=== PATIENT | female | born 1965 | race Caucasian/White ===

== ENCOUNTER 2024-03-13 23:42 | Emergency (ER) | payer BC, SELFPAY ==
[2024-03-13 23:48] VITALS: BP 110/78
[2024-03-14 00:08] VITALS: BP 115/97
[2024-03-14 00:32] LABS: COVID-19 Antigen Negative (Negative)
--- NOTE | 2024-03-14 00:48 | ED.GENMED ---
History of Present Illness
General
Chief Complaint: Cold/Flu/URI Symptoms
Source: patient
Exam Limitations: none
Time Seen by Provider: 03/14/24 00:23
Travel History
Have you had any contact with someone who has COVID-19?: No
Do you have any symptoms of coronavirus? Fever > 100 degrees, chills, cough, shortness of breath, sore throat, loss of taste or smell, muscle aches, or headache?: No
History of Present Illness
History of Present Illness:
This is a 58 year old female that comes in with c/o congestion. States that in Mid December she has a urinary tract infection. States that she tried over the counter medication and she let it got to long. States that she ended up with a sinus
infection, ear infection and she went to . States that she was given Antibiotics and this did not help and she was place on a second antibiotic and this helped and she started to heal. States that she then got a head old and has congestion, her
ears are clogged and now she has this band that goes around the lower chest to the back. States that this is right below the breast. States that she has had diarrhea. Denies any fever, chills, chest pain, SOB, abd pain, nausea, vomiting, headache,
dizziness, urinary burning or frequency.
Past History
Past History
ED Past Medical History: Asthma, CAD, HTN, Hypercholesterolemia, [place] and Other (Rheumatoid arthritis, psoriatic arthritis, osteoarthritis, Bronchitis, VF arrest, Diverticulitis, UTI, )
ED Past Surgical History: Cardiac (Defibulator), Cholecystectomy, Gynecological (Tubel, ), Orthopedic (Left knee surgery) and Other (Parathyroidectomy)
Social History
Tobacco: Former smoker
Alcohol: Occasional
Drug: None
Personal:
Living: with family
Family History
Family History: CAD; Negative Diabetes, Hypertension, Early CAD, Asthma or Cancer
Review of Systems
Review of Systems
All Other Systems: ROS reviewed and negative except as documented in HPI and ROS
Constitutional: Reports no symptoms; Denies fever or chills
EENT: Reports other (Head congestion)
Respiratory: Reports no symptoms; Denies cough or trouble breathing
Cardiac: Reports other (Band around the lower chest to the back); Denies chest pain
ABD/GI: Reports diarrhea; Denies abdominal pain, nausea or vomiting
: Reports no symptoms; Denies dysuria, frequency or urgency
Musculoskeletal: Reports no symptoms
Skin: Reports no symptoms
Neurological: Reports no symptoms; Denies dizzy or headache
Psychiatric: Reports no symptoms
Phy Exam
General Physical Exam
General Presentation: well appearing and no apparent distress
General age: appears stated age
General Skin: warm and dry
General Habitus: normal
General Mental: alert
General Hydration: appears well hydrated
ENT Exam
ENT Exam: TM's normal, pharynx normal and neck supple
Eye Exam
Eye Exam: EOMI
Cardiovascular Exam
Cardiovascular Exam: regular rate/rhythm, no edema, no murmur and normal peripheral pulses
Pulmonary Exam
Pulmonary Exam: no respiratory distress, no rales, chest non tender, no crackles, no rhonchi, no cough and other (Very faint exp wheezing. left mid to upper lung decreased breath sounds)
Gastrointestinal Exam
Gastrointestinal Exam: normal bowel sounds, non tender, soft, no organomegaly, no pulsatile mass and non distended
Musculoskeletal Exam
Musculoskeletal Exam: full ROM and no edema
Skin Exam
Skin Exam: normal color, warm/dry, no rash and no petechia
Psychiatric Exam
Psychiatric Exam: normal mood/affect
Course
Orders/Labs/Results
Orders:
Orders
03/14/24 00:09
COVID-19 Antigen Urgent
Source: Nasal Swab
Influenza A+B Rapid Molecular Urgent
JAVIER Source: Nasal Swab
Specimen Description:
03/14/24 00:46
Ipratropium/Albuterol Sulfate [Duoneb] 3 ml INH R NOW ONE
CR Chest - 2 Views Urgent
Comment:
Reason For Exam: cOUGH, CONGESTION
03/14/24 00:47
Electrocardiogram (*1) Urgent
Reason for Study: Chest Pain
EKG- Treatment ONCE
03/14/24 01:13
Complete Blood Count/With Diff Urgent
Comprehensive Metabolic Panel Urgent
Troponin I Urgent
Abnormal Lab Results
03/14/24
01:13
RBC 3.69 L 10^6/uL
(4.20-5.40)
Hct 34.5 L %
(37.0-47.0)
MCH 32.5 H pg
(27.0-31.0)
RDW 14.8 H %
(11.5-14.5)
Abs Immat Gran (auto) 0.1 H 10^3/uL
(0-0.05)
Absolute Monos (auto) 0.8 H 10^3/uL
(0.1-0.6)
Immature Gran % 1.0 H %
(0-0.5)
Monocytes % 11.3 H %
(1.7-9.3)
AST 42 H U/L
(14-36)
03/14/24 01:13
03/14/24 01:13
AST elevation. Troponin <0.012, COVID and Influenza negative.
Vital Signs
Initial and Last Documented VS:
Initial Vital Signs
Temp Pulse Resp BP Pulse Ox
97 F 84 22 110/78 94
03/13/24 23:48 03/13/24 23:48 03/13/24 23:48 03/13/24 23:48 03/13/24 23:48
Last Documented Vital Signs
Temp Pulse Resp BP Pulse Ox
97 F 70 19 103/75 100
03/13/24 23:48 03/14/24 01:21 03/14/24 01:21 03/14/24 01:11 03/14/24 01:21
MDM/Problems Addressed
Differential Diagnosis Includes:
PNA, wheezing,
MDM/Problems Addressed:
This is a 58 year old female that comes in with c/o congestion. States that she has a UTI in Mid december. Patient has antibiotic and was getting better and then started with a headache cold. State that now she has this band that is under her breast
that wraps around to the back.
wll get labs. ECG and chest X-ray. Will also give Duo neb.
Back into see patient. Patient states that she feels better after the neb treatment. Explained that this may be a little asthma. will give patient an Albuterol inhaler to use and follow up with the family doctor. Patient to increase her water intake
to 8-8oz glasses daily. Return if any other concerns.
Chronic conditions affecting care: CAD and Asthma
Acute Exacerbation and/or Progression of Chronic Illness: Asthma
*Radiology
Radiology exam reviewed: preliminary read by ED provider (Chest- Negative for any acute disease, Defib noted)
*Pulse Oximetry
Patient hypoxic: no
*EKG
Interpreted by ED Provider?: Yes
Heart Rate: 71
Rate: normal
Rhythm: sinus
Rodney: normal axis
Interval: normal interval
QRS Pattern: normal QRS
Ischemia: no ischemia
*Labor Arbitrator Hearing Office Interpretation
Rate: Labor Arbitrator Hearing Office- N/A
*Critical Care Note
Total Time (30-74mins, 75-104mins- exclusive of procedures): Not Applicable
ED Attending Note
-
Portions of this chart may have been created with voice recognition software.� Occasional wrong word or��sound alike� substitutions may have occurred due to the inherent limitations of voice recognition software.
Discharge Plan
Departure
Patient Disposition: Home (Routine Discharge)
Date of Disposition: 03/14/24
Time of Disposition: 01:59
Patient with high blood pressure during this ER visit?: No
Condition: Good
Covid-19: Negative COVID-19
Discharge Problem:
Asthma
Instructions: Asthma, Adult ED
Prescriptions:
New
albuterol sulfate 90 mcg/actuation HFA aerosol inhaler
2 puff inhalation Q4H PRN (Reason: shortness of breath or wheezing) Qty: 6.7 0RF
No Action
methotrexate sodium 2.5 MG tablet
5 tab PO WEEKLY
Patient Comments:
mondays; unsure dosage
takes on tuesdays 2.5 mg tab each takes 5 tabs
atorvastatin 40 MG tablet
40 mg PO QPM Qty: 30 3RF
lisinopril 2.5 MG tablet
2.5 mg PO DAILY Qty: 30 2RF
aspirin 81 MG tablet,delayed release (DR/EC)
81 mg PO DAILY
Patient Comments:
mariah aspirin
metoprolol tartrate 25 MG tablet
25 mg PO BID
metronidazole 500 MG tablet
500 mg PO TID Qty: 29 0RF
oxycodone-acetaminophen 5 MG/325 MG tablet
1 tab PO Q6HPRN PRN (Reason: pain) Qty: 12 0RF
levofloxacin 500 MG tablet
500 mg PO DAILY Qty: 9 0RF
cephalexin 500 MG capsule
500 mg PO BID Qty: 14 0RF
amoxicillin-pot clavulanate 1 TABLET tablet
1 tab PO BID Qty: 20 0RF
tramadol 50 mg tablet
50 mg PO Q8H PRN (Reason: Pain) Qty: 10 0RF
ibuprofen 600 mg tablet
600 mg PO QID PRN (Reason: fever or pain) Qty: 30 0RF
amoxicillin-pot clavulanate 875-125 mg tablet
1 tab PO BID Qty: 20 0RF
Referrals:
Leslye Gutierrez CRNP [Family Provider] - Call in 1-3 days for appt
Activity Restrictions/Additional Instructions:
As discussed your blood work is normal along with your ECG and Troponin. Your chest x-ray is normal. This is most likely a little asthma exacerbation. You have had a prescription sent to your Pharmacy. If you have any chest tightness, wheezing or
shortness of breath you may use 2 puffs every 4 hours as needed. . Please increase your water intake to 8-8oz glasses daily. Follow up with the family doctor as needed. IF YOU HAVE ANY OTHER CONCERNS PLEASE RETURN TO THE EMERGENCY ROOM.
Interventions
Interventions:
*Risk Screen - Suicide Last Done: 03/13/24 23:48
*General Assessment Last Done: 03/14/24 01:16
*Neglect/Abuse Screening Last Done: 03/13/24 23:48
ED- Fall Risk Assessment Last Done: 03/14/24 01:16
*ED COVID-19 Vaccine History Last Done: 03/14/24 01:16
ED- Pulmonary Assessment Last Done: 03/14/24 01:16
Discharge Date and Time
Print Language: BELIZEAN
[2024-03-14] MEDS: DUONEB 3 ML INH (01:04)
[2024-03-14 01:11] VITALS: BP 103/75
[2024-03-14 01:21] LABS: % Basophils 1.1 % (0-2); % Eosinophils 3.8 % (0-6); % Lymphocytes 26.5 % (20.5-51.1); % Monocytes 11.3 % (1.7-9.3); % Neutrophils 56.3 % (42.2-75.2); Absolute Basophils 0.1 10^3/uL (0-0.2); Absolute Eosinophils 0.3 10^3/uL (0-0.7); Absolute Immature Granulocytes 0.1 10^3/uL (0-0.05); Absolute Monocytes 0.8 10^3/uL (0.1-0.6); Absolute Neutrophils 4.2 10^3/uL (1.4-6.5); Hematocrit 34.5 % (37.0-47.0); Mean Corp Hgb Conc. 34.8 g/dL (33.0-37.0); Mean Corpuscular Hgb 32.5 pg (27.0-31.0); Mean Corpuscular Volume 93.5 fL (81.0-99.0); Nucleated Red Blood Cells % 0 %; Platelet Count 267 10^3/uL (130-400); Red Blood Cell Count 3.69 10^6/uL (4.20-5.40); Red Cell Dist. Width 14.8 % (11.5-14.5); White Blood Cell Count 7.4 10^3/uL (4.8-10.8)
[2024-03-14 01:42] LABS: ALT (SGPT) 33 U/L (0-35); AST (SGOT) 42 U/L (14-36); Albumin 4.1 g/dl (3.5-5.0); Alkaline Phosphatase 79 U/L (38-126); Blood Urea Nitrogen 11 mg/dl (7-17); Calcium 9.5 mg/dl (8.4-10.2); Carbon Dioxide 26 mmol/L (22-30); Chloride 107 mmol/L (98-107); Glucose 93 mg/dl (70-99); Potassium 3.6 mmol/L (3.5-5.1); Sodium 141 mmol/L (135-145); Total Bilirubin 0.5 mg/dl (0.2-1.3); Total Protein 6.5 g/dl (6.3-8.2); eGFR > 60.00
[2024-03-14 01:51] LABS: Troponin I < 0.012 ng/ml
== END 2024-03-14 02:19 | disposition home or self-care (01) ==
LOC: EMR 23:42
PROVIDERS: Clinical Nurse Specialist Family Health; Emergency Medicine; EMERGENCY PHYSICIAN Emergency Medicine; FAMILY PHYSICIAN Nurse Practitioner Adult Health
DX: J45.901 Unspecified asthma with (acute) exacerbation (principal); R19.7 Diarrhea, unspecified; Z11.52 Encounter for screening for COVID-19; I10 Essential (primary) hypertension; E78.00 Pure hypercholesterolemia, unspecified; I25.10 Atherosclerotic heart disease of native coronary artery without angina pectoris; M06.9 Rheumatoid arthritis, unspecified; K57.92 Diverticulitis of intestine, part unspecified, without perforation or abscess without bleeding; M19.90 Unspecified osteoarthritis, unspecified site; I25.2 Old myocardial infarction; Z79.82 Long term (current) use of aspirin; Z95.810 Presence of automatic (implantable) cardiac defibrillator; Z86.74 Personal history of sudden cardiac arrest; Z87.440 Personal history of urinary (tract) infections; Z87.891 Personal history of nicotine dependence; Z90.49 Acquired absence of other specified parts of digestive tract; Z88.1 Allergy status to other antibiotic agents; Z88.5 Allergy status to narcotic agent; Z88.2 Allergy status to sulfonamides; Z88.8 Allergy status to other drugs, medicaments and biological substances
CPT/HCPCS: 99283; 94640; 71046; 80053; 84484; 85025; 87502; 87811; 93005

== ENCOUNTER 2024-09-17 13:06 | Emergency (ER) | payer BC, SELFPAY ==
[2024-09-17 13:11] VITALS: BP 163/108
[2024-09-17 14:31] VITALS: BP 156/94
[2024-09-17 15:00] VITALS: BP 135/91
--- NOTE | 2024-09-17 15:20 | ED.GENMED ---
History of Present Illness
General
Chief Complaint: Swelling
Source: patient
Exam Limitations: none
Time Seen by Provider: 09/17/24 15:08
Nursing documentation reviewed up to this point in time: agreed with
History of Present Illness
History of Present Illness:
58-year-old female presenting to the emergency department today with concerns of left elbow redness and swelling she noticed possible bite to the elbow 2 weeks ago small break in the skin seem to be getting better but worsening redness and swelling
over the past day or so. Also noticed a small and swelling to her left foot. Denies any chest pain shortness of breath fevers nausea or vomiting. Does have a history of multiple autoimmune issues.
Past History
Past History
ED Past Medical History: Asthma, CAD, HTN, Hypercholesterolemia, [place] and Other (Rheumatoid arthritis, psoriatic arthritis, osteoarthritis, Bronchitis, VF arrest, Diverticulitis, UTI, )
ED Past Surgical History: Cardiac (Defibulator), Cholecystectomy, Gynecological (Tubel, ), Orthopedic (Left knee surgery) and Other (Parathyroidectomy)
Social History
Tobacco: Former smoker
Alcohol: Occasional
Drug: None
Personal:
Living: with family
Family History
Family History: CAD; Negative Diabetes, Hypertension, Early CAD, Asthma or Cancer
Review of Systems
Review of Systems
Allergies reviewed?: Yes
All Other Systems: ROS reviewed and negative except as documented in HPI and ROS
Phy Exam
Physical Exam
Physical Exam:
GENERAL: Alert , in no apparent distress
EYE: pupils equal and reactive
NECK: Supple, no significant adenopathy.
ENT: o/p clr, mmm.
CARDIAC: Regular rate and rhythm .
LUNGS: Clear breath sounds bilaterally, no acute respiratory distress, no wheezes/rales/rhonchi
ABDOMEN: Soft, without focal tenderness, no r/g, no cvat
NEUROLOGICAL: Alert and oriented, no focal neuro deficits
SKIN: Redness and swelling overlying the left proximal forearm on the lateral aspect. No fluctuance or induration surrounding the olecranon. Good range of motion of the elbow. No discomfort with movement of the elbow. Warm and dry, skin intact.
MUSCULOSKELETAL: No edema, well perfused.
PSYCH: Normal and appropriate interaction.
Scores
Heart Failure Risk
Heart Failure Risk Score: Not Applicable
Course
Orders/Labs/Results
Orders:
Orders
09/17/24 15:17
Cephalexin Monohydrate [Keflex] 500 mg PO NOW STA
Venous Doppler Lwr Ext Left [US Periph Venous LOWER Ext LT] Urgent
Comment:
Reason For Exam: leg swelling
09/17/24 15:24
Cephalexin Monohydrate [Keflex] 500 mg .ROUTE .STK-MED ONE
Vital Signs
Initial and Last Documented VS:
Initial Vital Signs
Temp Pulse Resp BP Pulse Ox
97.6 F 90 16 163/108 96
09/17/24 13:11 09/17/24 13:11 09/17/24 13:11 09/17/24 13:11 09/17/24 13:11
Last Documented Vital Signs
Temp Pulse Resp BP Pulse Ox
97.6 F 78 16 135/91 96
09/17/24 13:11 09/17/24 15:28 09/17/24 13:11 09/17/24 15:00 09/17/24 15:30
MDM/Problems Addressed
MDM/Problems Addressed:
58-year-old female presenting to the emergency department today with concerns of swelling discomfort left elbow region now she had a bug bite to the area there is a small scab some ongoing inflammation to the area over the past week or so worsening
over the past day no fevers no also noted some vague swelling to the left foot but no redness or warmth able to ambulate well moving well. She was concerned of a blood clot denies any history of such no recent trauma surgery immobilization.
Ultrasound performed of the left leg without evidence of DVT. Patient was started on antibiotics for possible infection to the left elbow region however no evidence of intra-articular infection considering good range of motion no discomfort with
movement. Otherwise stable for outpatient management return precautions given.
*Critical Care Note
Total Time (30-74mins, 75-104mins- exclusive of procedures): Not Applicable
ED Attending Note
-
Portions of this chart may have been created with voice recognition software.� Occasional wrong word or��sound alike� substitutions may have occurred due to the inherent limitations of voice recognition software.
Discharge Plan
Departure
Patient Disposition: Home (Routine Discharge)
Date of Disposition: 09/17/24
Time of Disposition: 17:31
Patient with high blood pressure during this ER visit?: No
Condition: Good
Covid-19: Not Applicable
Discharge Problem:
Cellulitis of arm, left
Instructions: Cellulitis (Skin Infection), Adult ED
Prescriptions:
New
cephalexin 500 mg capsule
500 mg PO QID 7 Days Qty: 28 0RF
No Action
methotrexate sodium 2.5 MG tablet
5 tab PO WEEKLY
Patient Comments:
mondays; unsure dosage
takes on tuesdays 2.5 mg tab each takes 5 tabs
atorvastatin 40 MG tablet
40 mg PO QPM Qty: 30 3RF
lisinopril 2.5 MG tablet
2.5 mg PO DAILY Qty: 30 2RF
aspirin 81 MG tablet,delayed release (DR/EC)
81 mg PO DAILY
Patient Comments:
mariah aspirin
metoprolol tartrate 25 MG tablet
25 mg PO BID
metronidazole 500 MG tablet
500 mg PO TID Qty: 29 0RF
oxycodone-acetaminophen 5 MG/325 MG tablet
1 tab PO Q6HPRN PRN (Reason: pain) Qty: 12 0RF
levofloxacin 500 MG tablet
500 mg PO DAILY Qty: 9 0RF
cephalexin 500 MG capsule
500 mg PO BID Qty: 14 0RF
amoxicillin-pot clavulanate 1 TABLET tablet
1 tab PO BID Qty: 20 0RF
tramadol 50 mg tablet
50 mg PO Q8H PRN (Reason: Pain) Qty: 10 0RF
ibuprofen 600 mg tablet
600 mg PO QID PRN (Reason: fever or pain) Qty: 30 0RF
amoxicillin-pot clavulanate 875-125 mg tablet
1 tab PO BID Qty: 20 0RF
albuterol sulfate 90 mcg/actuation HFA aerosol inhaler
2 puff inhalation Q4H PRN (Reason: shortness of breath or wheezing) Qty: 6.7 0RF
Referrals:
Leslye Gutierrez CRNP [Family Provider] -
Activity Restrictions/Additional Instructions:
You came to the emergency department today with concerns of swelling to your left foot and also redness and swelling to your left elbow. Here it appeared that it could be consistent with infection to the left elbow region. Please take the Keflex 4
times daily for the close with the primary care doctor for reassessment. Return to the emergency department any worsening, new or concerning symptoms.
Interventions
Interventions:
*Risk Screen - Suicide Last Done: 09/17/24 13:14
*General Assessment Last Done: 09/17/24 15:26
*Neglect/Abuse Screening Last Done: 09/17/24 13:14
*ED COVID-19 Vaccine History Last Done: 09/17/24 15:26
ED- Cardiac Assessment Last Done: 09/17/24 15:27
ED- Pulmonary Assessment Last Done: 09/17/24 15:29
Discharge Date and Time
Print Language: BULGARIAN
[2024-09-17] MEDS: KEFLEX 500 MG PO (15:22)
[2024-09-17 15:25] VITALS: BMI 27.6
[2024-09-17 18:03] VITALS: BP 135/75
== END 2024-09-17 18:04 | disposition home or self-care (01) ==
LOC: EMR 13:06
PROVIDERS: EMERGENCY PHYSICIAN Student in an Organized Health Care Education/Training Program; FAMILY PHYSICIAN Nurse Practitioner Adult Health
DX: L03.114 Cellulitis of left upper limb (principal); E78.00 Pure hypercholesterolemia, unspecified; I10 Essential (primary) hypertension; I25.10 Atherosclerotic heart disease of native coronary artery without angina pectoris; J45.909 Unspecified asthma, uncomplicated; M06.9 Rheumatoid arthritis, unspecified; Z87.891 Personal history of nicotine dependence; I25.2 Old myocardial infarction; Z90.49 Acquired absence of other specified parts of digestive tract
CPT/HCPCS: 99284; 93971

== ENCOUNTER → 2025-08-10 13:46 | Outpatient (REF) | payer BC, SELFPAY | LOC: RAD 13:46 | PROVIDERS: ATTENDING PHYSICIAN Physician Assistant; FAMILY PHYSICIAN Nurse Practitioner Family | DX: M25.559 Pain in unspecified hip (principal); M54.50 Low back pain, unspecified | CPT/HCPCS: 72114; 73523 ==